=== PATIENT | female | born 1935 | race Caucasian/White ===

== ENCOUNTER → 2016-04-10 | Outpatient (CLI) | payer OTHER ==
[~2016-04-10] VITALS: Ht 162.6 cm; Wt 70.2 kg
[~2016-04-10] MED LIST: BACTRIM,SEPT1 TABLET PO; CALCIUM 600 +1 EA11 PO; CINNAMON500 MG PO; CIPRO750 MG PO; COZAAR50 MG PO; DAILY VITE1 EAC1 PO; METRONIDAZOLE500 MG PO; NEURONTIN100 MG PO; SYNTHROID75 MCG PO; ULTRAM50 MG PO; ZANTAC 2525 MG PO; ZOFRAN4 MG PO
== END | disposition home or self-care (01) ==
LOC: AMB 10:11
PROC: 0DJD8ZZ Inspection of Lower Intestinal Tract, Via Natural or Artificial Opening Endoscopic (ICD-10-PCS; principal; 2016-04-10)
DX: K62.5 Hemorrhage of anus and rectum (principal); K57.90 Diverticulosis of intestine, part unspecified, without perforation or abscess without bleeding; K64.8 Other hemorrhoids; E03.9 Hypothyroidism, unspecified; I10 Essential (primary) hypertension
CPT/HCPCS: 93005

== ENCOUNTER 2016-07-26 12:40 | Emergency (ER) | payer OTHER ==
[~2016-07-26] VITALS: Ht 165.1 cm; Wt 74.5 kg
[2016-07-26 13:59] LABS: EOSINOPHIL (%) 0 % (0-5); HEMATOCRIT 37.1 % (36.0-46.0); IMMATURE GRANULOCYTE (%) 0.4 % (0.0-0.7); INSTRUMENT ABS NEUTROPHIL CT 8.2 K/uL; LYMPHOCYTE COUNT 0.6 K/uL (1.0-2.8); MCH 30.4 PG (29.0-34.0); MCHC 32.6 G/DL (30.0-36.0); MCV 93.2 FL (83-99); MONOCYTE (%) 4.6 % (3-12); MONOCYTE COUNT 0.4 K/uL (0-0.8); NEUTROPHIL (%) 88.2 % (45-76); NEUTROPHIL COUNT 8.2 K/uL (1.8-6.4); PLATELET COUNT 235 K/uL (156-360); RBC DIS.WIDTH-CV 13.4 % (11.8-14.6); RBC DIS.WIDTH-SD 45.8 % (39-53); RED BLOOD COUNT 3.98 M/uL (3.80-5.20); WHITE BLOOD COUNT 9.4 K/uL (4.1-10.2)
[2016-07-26 14:07] LABS: CHLORIDE 101 mEq/L (99-109); POTASSIUM 4.2 mEq/L (3.7-5.4); SODIUM 134 mEq/L (136-147)
[2016-07-26 14:09] LABS: GLUCOSE 133 mg/dL (70-99)
[2016-07-26 14:10] LABS: ANION GAP 9 MEQ/L (2-14)
[2016-07-26 14:11] LABS: TOTAL BILIRUBIN 0.5 mg/dL (0.0-1.0)
[2016-07-26 14:12] LABS: ALKALINE PHOSPHATASE 51 IU/L (3-129)
[2016-07-26 14:13] LABS: GFR ESTIMATE (CALCULATED) 57 mL/min/
[2016-07-26 14:14] LABS: UREA NITROGEN (BUN) 14 mg/dL (9-23)
[2016-07-26 14:16] LABS: TROP-I INTERPRETATION NEGATIVE; TROPONIN-I < 0.01 ng/mL (0.0-0.30)
[2016-07-26 14:22] LABS: ADD MIUA? YES; BILIRUBIN NEGATIVE; BLOOD NEGATIVE; COLOR YELLOW ((YELLOW)); GLUCOSE (STRIP) NEGATIVE; KETONES NEGATIVE; LEUKOCYTES TRACE; NITRITE NEGATIVE; PROTEIN (STRIP) NEGATIVE; SPECIFIC GRAVITY 1.019 (1.000-1.030); UROBILINOGEN 0.2 MG/DL (0.2-1.0)
[2016-07-26 14:58] LABS: RED BLOOD CELLS 0-5 /HPF (0-5); WHITE BLOOD CELLS 0-5 /HPF (0-5)
[2016-07-26 14:59] LABS: BACTERIA 1+ /HPF; CASTS PRESENT /LPF; CRYSTALS NONE SEEN; EPITHELIAL CELLS RARE /HPF; FINE GRANULAR CASTS 0-5 /LPF; MUCUS 3+ /LPF; UCUL ADDED? NO
[2016-07-26] MEDS ORDERED: DOXYCYCLINE HY100 MG PO (15:21)
[2016-07-26 15:56] VITALS: BP 114/72
== END 2016-07-26 16:07 | disposition home or self-care (01) ==
LOC: EME 12:40
PROVIDERS: Emergency Medicine
DX: J18.9 Pneumonia, unspecified organism (principal); J20.9 Acute bronchitis, unspecified; E78.5 Hyperlipidemia, unspecified; I10 Essential (primary) hypertension; E03.9 Hypothyroidism, unspecified
CPT/HCPCS: 71010; 80053; 81003; 83605; 84484; 85025; 87040; 99281; 99285

== ENCOUNTER 2016-12-01 21:32 | Emergency (ER) | payer OTHER ==
[~2016-12-01] VITALS: Ht 167.6 cm; Wt 74.5 kg
[~2016-12-01 21:32] MED LIST changes: +DOXYCYCLINE HY100 MG PO
[2016-12-01 22:01] LABS: HEMATOCRIT 35.1 % (36.0-46.0); MCH 30.4 PG (29.0-34.0); MCHC 32.8 G/DL (30.0-36.0); MCV 92.9 FL (83-99); MEAN PLAT.VOLUME 9.5 uM^3 (9.5-12.4); PLATELET COUNT 230 K/uL (156-360); RBC DIS.WIDTH-CV 13.2 % (11.8-14.6); RBC DIS.WIDTH-SD 45.4 % (39-53); RED BLOOD COUNT 3.78 M/uL (3.80-5.20); WHITE BLOOD COUNT 5.4 K/uL (4.1-10.2)
[2016-12-01 22:15] LABS: CHLORIDE 101 mEq/L (99-109); POTASSIUM 4.8 mEq/L (3.7-5.4); SODIUM 137 mEq/L (136-147)
[2016-12-01 22:17] LABS: GLUCOSE 124 mg/dL (70-99)
[2016-12-01 22:19] LABS: ANION GAP 11 MEQ/L (2-14)
[2016-12-01 22:21] LABS: GFR ESTIMATE (CALCULATED) > 59 mL/min/
[2016-12-01 22:22] LABS: UREA NITROGEN (BUN) 19 mg/dL (9-23)
[2016-12-01 22:39] VITALS: BP 185/85
== END 2016-12-01 22:44 | disposition home or self-care (01) ==
LOC: EME 21:32
DX: R79.89 Other specified abnormal findings of blood chemistry (principal); I10 Essential (primary) hypertension; E03.9 Hypothyroidism, unspecified
CPT/HCPCS: 80048; 85027; 93005; 99281; 99284